=== PATIENT | female | born 1940 | race Caucasian/White ===

== ENCOUNTER → 2017-04-16 | Outpatient (CLI) | payer OTHER, MEDICARE ==
[~2017-04-16] MED LIST: ASPIRIN81 M2 PO; BENAZEPRIL HCL40 MG PO; CALCIUM 600 +1 EAC1 PO; CIPROFLOXACIN500 M3 PO; DULCOLAX STOOL100 MG PO; DUONEB 2.5-0.5 M3 ML INH; FLAGYL500 MG PO; GLUCOPHAGE500 MG PO; INDAPAMIDE1.25 MG PO; IRON325 PO; METOPROLOL SUCC25 M1 PO; PRADAXA150 MG PO; SIMVASTATIN40 MG PO
== END ==
LOC: CAT 09:10
DX: J43.9 Emphysema, unspecified (principal); R06.02 Shortness of breath; R06.00 Dyspnea, unspecified; R91.1 Solitary pulmonary nodule

== ENCOUNTER → 2017-06-07 | Outpatient (CLI) | payer OTHER, MEDICARE | LOC: RAD 00:18 | DX: Z12.31 Encounter for screening mammogram for malignant neoplasm of breast (principal) ==

== ENCOUNTER → 2017-06-21 | Outpatient (CLI) | payer OTHER, MEDICARE ==
--- NOTE | ~2017-06-21 | 2DMMODE ---
[facility] [address] [place] [address] 2 D/M-MODE ECHOCARDIOGRAM Name: WILBERT ANNA Room [facility] [id number] Admission: 06/21/17 Attend Phys: Omkar Lezama, Discharge: Date of : 40 Date of Service: 06/21/17 1505 Report #: [id number] THIS REPORT FOR: //name// APPROVED REPORT Study performed: 06/21/2017 14:09:21 EXAM: Comprehensive 2D, Doppler, and color-flow Echocardiogram Patient Location: Echo lab Status: routine BSA: 1.63 BP: 155/70 mmHg Other Information Study Quality: Good Indications COPD CAD 2D Dimensions RVDd: 30.93 mm LVEF(%): 52.30 (>50%) IVSd: 9.84 (7-11mm) LVOT Diam: 16.98 (18-24mm) LVDd: 49.68 mm PWd: 9.76 (7-11mm) Ascending Ao: 22.83 (22-36mm) LVDs: 36.31 (25-40mm) Aortic Root: 25.32 mm IVC: 18.00 mm Carlson's LVEF: 52.30 % Volumes Left Atrial Volume (Systole) Single Plane 4CH: 35.95 mL Single Plane 2CH: 44.12 mL LA ESV Index: 27.00 mL/m2 Aortic Valve AoV Peak Henry.: 1.49 m/s AO Peak Gr.: 8.93 mmHg LVOT Max P.62 mmHg LVOT Max V: 1.08 m/s MAHAD Vmax: 1.63 cm2 Mitral Valve E/A Ratio: 2.2 MV Decel. Time: 232.73 ms [facility] [address] [address] 2 D/M-MODE ECHOCARDIOGRAM Name: WILBERT ANNA Room #: [facility]#: [id number] Admission: 06/21/17 Attend Phys: Omkar Lezama, Discharge: Date of : 40 Date of Service: 06/21/17 1505 Report #: [id number] MV E Max Henry.: 0.89 m/s MV A Henry.: 0.40 m/s MV PHT: 67.49 ms IVRT: 100.35 ms Pulmonary Valve PV Peak Henry.: 1.15 m/s PV Peak Gr.: 5.32 mmHg Tricuspid Valve TR Peak Henry.: 3.23 m/s RAP Estimate: 5.00 mmHg TR Peak Gr.: 41.80 mmHg Left Ventricle The left ventricle is normal size. Paradoxical septal motion consistent with conduction abnormality. Regional wall motion is grossly normal other segments There is normal left ventricular wall thickness. The left ventricular systolic function is normal. The left ventricular ejection fraction is within the normal range. LVEF is 60%. Left atrial pressure is elevated. Right Ventricle The right ventricle is normal size. Right ventricle is mildly hypokinetic. Atria Left atrium is mildly dilated. Right atrium is mildly dilated. Aortic Valve The aortic valve is normal in structure. No aortic regurgitation is present. There is no aortic valvular stenosis. Mitral Valve The mitral valve is normal in structure. Mild to moderate mitral regurgitation. No evidence of mitral valve stenosis. Tricuspid Valve The tricuspid valve is normal in structure. There is moderate tricuspid regurgitation. The right atrial pressure is estimated at 5 mmHg. PAP is estimated at 47 mmHg. Pulmonic Valve Pulmonic valve is not well visualized. Trace pulmonic regurgitation. Great Vessels [facility] [address] [place] [address] 2 D/M-MODE ECHOCARDIOGRAM Name: WILBERT ANNA [id number] Admission: 06/21/17 Attend Phys: Omkar Lezama, Discharge: Date of : 40 Date of Service: 06/21/17 1505 Report #: [id number] The aortic root is normal in size. IVC is normal in size and collapses >50% with inspiration. Pericardium There is no pericardial effusion. <Conclusion> LVEF is 60%. Paradoxical septal motion consistent with conduction abnormality. Regional wall motion is grossly normal other segments Left atrial pressure is elevated. Left atrium is mildly dilated. There is no aortic valvular stenosis. No aortic regurgitation is present. Mild to moderate mitral regurgitation. There is moderate tricuspid regurgitation. The right atrial pressure is estimated at 5 mmHg. PAP is estimated at 47 mmHg. <ELECTRONICALLY SIGNED> By: Omkar Lezama MD, FACC 06/21/17 1505 1505 1505 Omkar Lezama MD, FACC /INF
== END ==
LOC: CV 13:04
DX: I48.0 Paroxysmal atrial fibrillation (principal)

== ENCOUNTER → 2017-10-25 | Outpatient (CLI) | payer OTHER, MEDICARE | LOC: CAT 08:15 | DX: J43.9 Emphysema, unspecified (principal); N28.1 Cyst of kidney, acquired; N26.1 Atrophy of kidney (terminal); R91.1 Solitary pulmonary nodule ==

== ENCOUNTER → 2018-06-13 | Outpatient (CLI) | payer OTHER, MEDICARE | LOC: RAD 09:41 | DX: Z12.31 Encounter for screening mammogram for malignant neoplasm of breast (principal) ==

== ENCOUNTER → 2018-08-22 | Outpatient (CLI) | payer OTHER, MEDICARE | LOC: ULTRA 10:57 → RAD 10:57 | DX: N26.1 Atrophy of kidney (terminal) (principal); R19.09 Other intra-abdominal and pelvic swelling, mass and lump ==

== ENCOUNTER → 2019-01-27 | Outpatient (CLI) | payer OTHER, MEDICARE | LOC: CAT 10:26 | DX: J43.2 Centrilobular emphysema (principal); R91.1 Solitary pulmonary nodule ==

== ENCOUNTER 2019-02-12 14:32 | Inpatient (IN) | payer OTHER, MEDICARE ==
[~2019-02-12] VITALS: Ht 152.4 cm; Wt 53.1 kg
[2019-02-12 14:33] VITALS: BP 167/69
[2019-02-12 14:49] LABS: ABSOLUTE NEUTROPHILS 9.6 thou/uL (1.4-8.2); BASOPHILS 0.3 % (0.0-2.0); HEMATOCRIT 38.6 % (37.0-47.0); HEMOGLOBIN 13.2 gm/dL (12.0-15.0); LYMPHOCYTES 1.4 % (24.0-44.0); MCH 32.6 pg (26.0-34.0); MCHC 34.1 g/dL (28.0-37.0); MCV 95.6 fL (80.0-100.0); MONOCYTES 6.3 % (1.0-8.0); PLATELET COUNT 240 thou/uL (150-400); RBC 4.04 mil/uL (4.20-5.00); RDW 14.2 % (10.5-14.5); WBC 10.4 thou/uL (4.0-11.0)
[2019-02-12 14:59] LABS: CALCIUM 9.3 mg/dL (8.5-10.1); CREATININE 0.8 mg/dL (0.6-1.0); POTASSIUM 3.6 mmol/L (3.5-5.1)
[2019-02-12 15:02] LABS: APTT 23.8 Seconds (24.5-32.8); INR 1.1; PROTIME 11.1 Seconds (9.3-11.4)
[2019-02-12 15:05] LABS: ALBUMIN 3.8 g/dL (3.4-5.0); TOTAL PROTEIN 7.3 g/dL (6.4-8.2)
[2019-02-12 17:05] VITALS: BP 161/74
[2019-02-12 17:19] VITALS: BP 161/74
[2019-02-12 17:30] VITALS: BP 152/47
[2019-02-12 19:12] VITALS: BP 145/59
[2019-02-12] MEDS ORDERED: FISH OIL 1,0001 EAC1 PO (19:45)
[2019-02-13 03:36] VITALS: BP 141/61
--- NOTE | 2019-02-13 04:34 | NUR ---
Pt. was given morphine earlier during the shift for c/o hip pain (see emar) with no relief. Physician called and notified with new orders for fentanyl (see cpoe). Fentanyl given for pain (see emar) with better pain control noted. Bed alarm is on.
--- NOTE | 2019-02-13 07:32 | EKG ---
[place] [address] [place] [address] ELECTROCARDIOGRAM REPORT Name: WILBERT ANNA Room #: 459-P ADM IN .R.#: [id number] ������������������ Admission: 02/12/19 ������������������ Attend Phys: Ronnie Joyner MD Discharge: ������������������ Date of : 40 Report #: [id number] ����������������������������������������������������������������� [id number] THIS REPORT FOR: //name// [facility] ED Test Date: 2019-02-12 Test Time: 14:43:16 Pat Name: WILBERT ANNA Department: Room: 45 Gender: F Contracting Executive: ANA : 1940 Requested By: Johnie Lima Order Number: [id number] MD: John Dyer Measurements Intervals Lena Rate: 81 P: MI: QRS: -79 QRSD: 152 T: 78 QT: 413 QTc: 480 Interpretive Statements Atrial fibrillation Ventricular premature complex RBBB and LAFB Compared to ECG 11/06/2012 17:01:41 Ventricular premature complex(es) now present Electronically Signed On 02-13-2019 7:32:01 CDT by John Dyer [email or web address] ��������������������������������������������� <ELECTRONICALLY SIGNED> ���������������������������������������� By: John Dyer MD, [facility] ��������������������������������������������� 02/13/19 0732 1443 1443 John Dyer MD, [facility] /EPI
[2019-02-13 08:54] VITALS: BP 149/50
--- NOTE | 2019-02-13 12:48 | HC ---
[facility] [place] [address] [place] [address] CONSULTATION Name: DAMONJUAN JOSEWILBERT B Room #: 459-P ADM IN M.R.#: [id number] Admission: 02/12/19 ������������������ Attend Phys: Ronnie Joyner MD Discharge: ������������������ Date of : 40 Report #: [id number] THIS REPORT FOR: //name// CC: Kris Joyner CHIEF COMPLAINT: Pelvic fracture. HISTORY OF PRESENT ILLNESS: This 78-year-old female states that she lives independently in her own home. She states she has been ambulatory without much difficulty. She does, however, seem slightly confused and I am uncertain about her history, it appears she has fallen today and complains of pelvic and right hip discomfort. At the time of my evaluation, she is somewhat sleepy and lethargic and mildly confused. She states she has only minor discomfort. She demonstrates good movement of both upper extremities, but does complain of some mild shoulder discomfort bilaterally. There is no bruising or swelling at the shoulder. She does have some forearm bruising, but this appears to be superficial. She demonstrates good stability and movement of both wrists and hands. There is no objective evidence of fracture involving the upper extremities. The neck and back reveal in general, normal contour and alignment. She has some generalized stiffness, but there is no obvious or significant deformity in this area and there is no objective evidence of fracture. The pelvis is uncomfortable to palpation and movement in a rather diffuse fashion more toward the right than the left. The right hip seems to be well aligned and is only mildly uncomfortable with gentle rotation. She does have more discomfort with more extensive movement of the right hip, although there is no clear evidence of hip instability or shortening. The right thigh, knee, lower leg, and foot all appear to be normal with the exception of minor degenerative change. The left side of the pelvis reveals better movement of the hip with much less discomfort. She has good movement of the knee and ankle with only minor discomfort. There is no evidence of instability or deformity. Neurologic status in both lower extremities appeared to be normal. 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 There is no evidence of fracture involving the proximal femur on either side. There is mildly displaced fractures of both the superior and inferior pubic rami on the right side. IMPRESSION: Pelvic fracture with right superior and inferior pubic rami fractures with mild displacement. I feel this could be managed nonsurgically. I am sure she will have discomfort and may have difficulty with transfers or ambulation; however, she may start with physical therapy whenever comfort allows and we can begin use of a walker with weightbearing as tolerated and ambulation if comfort will allow. I expect she will not be able to manage independently in her own home and she states she is currently living. [place], [place] [address] CONSULTATION Name: WILBERT ANNA Ivis Room #: 459-P ADM IN M.R.#: [id number] Admission: 02/12/19 ������������������ Attend Phys: Ronnie Joyner MD Discharge: ������������������ Date of : 40 Report #: [id number] will need temporary placement in an extended care facility. She could move ahead with that transfer whenever she is medically stable and whenever she can manage adequately with transfers or limited ambulation. ��������������������������������������������� <ELECTRONICALLY SIGNED> ���������������������������������������� By: Leland Francisco MD ��������������������������������������������� 02/13/19 1248 [id number] Leland Francisco MD /nt
--- NOTE | 2019-02-13 15:07 | NUR ---
PT VS STABLE THROUGHOUT SHIFT. PT WORKED WELL WITH PT AND IS UP TO [facility]. PT ABLE TO USE [facility]. PT TO TRANSFER TO [address] [place] [address].
--- NOTE | 2019-02-13 16:45 | NUR ---
PT ADMITTED RELATED TO R [facility] FX. CM REVIEWED CHART AND SPOKE WITH CARE TEAM. CM MET WITH PT AND FAMILY AT BEDSIDE THIS DAY. PT IS A&O X4. CM ROLE INTRODUCED. PT INDICATED SHE LIVES ALONE IN A HOUSE WITH 2 STEPS TO ENTER AND NO STEPS INSIDE. PT INDICATED SHE HAD BEEN INDEPENDENT WITH GAIT AND ADLS [employer]. PT INDICATED NO DME OR HH HX. PT INDICATED SHE WAS RECEPTIVE TO POST ACUTE CARE STAY. [facility] ASSESSED AND INDICATED THAT THEY ARE ABLE TO ACCEPT PT THIS DAY. PT AND FAMILY ARE AWARE AND AGREEABLE. PT IS TO DC TO [facility] THIS EVENING. REPORT TO BE CALLED TO . NO OTHER CM INTERVENTION INDICATED. CASE CLOSED.
== END 2019-02-13 17:30 | DRG 535 ==
LOC: ER 14:32 → 4W 17:05 → EROBS 17:05 → ER 17:05 → 4W 17:05
PROVIDERS: Emergency Medicine; ADMIT Internal Medicine
DX: S32.511A Fracture of superior rim of right pubis, initial encounter for closed fracture (principal); J96.01 Acute respiratory failure with hypoxia; J98.11 Atelectasis; I25.10 Atherosclerotic heart disease of native coronary artery without angina pectoris; J44.9 Chronic obstructive pulmonary disease, unspecified; R29.6 Repeated falls; Z95.1 Presence of aortocoronary bypass graft; Z90.49 Acquired absence of other specified parts of digestive tract; Z87.891 Personal history of nicotine dependence; I25.2 Old myocardial infarction; Z47.89 Encounter for other orthopedic aftercare; W18.39XA Other fall on same level, initial encounter; Y93.89 Activity, other specified; Y92.89 Other specified places as the place of occurrence of the external cause; Y99.8 Other external cause status; Z23 Encounter for immunization
CPT/HCPCS: 10040

== ENCOUNTER 2019-04-08 08:57 | Inpatient (IN) | payer OTHER, MEDICARE ==
[~2019-04-08] VITALS: Ht 152.4 cm; Wt 55.7 kg
--- NOTE | ~2019-04-08 | HC ---
[facility] [address] [place] [address] CONSULTATION Name: WILFRIDOWILBERT B Room #: 208-P [facility] IN M.R.#: [id number] Admission: 04/08/19 Attend Phys: Katina Bee Discharge: Date of : 40 Report #: [id number] THIS REPORT FOR: //name// CC: Kris Bee ORTHOPEDIC CONSULTATION CHIEF COMPLAINT: Right shoulder pain. HISTORY OF PRESENT ILLNESS: The patient is a pleasant 78-year-old female seen today with her daughter at bedside. She is currently in the CCU. The patient reportedly fell yesterday, had an unwitnessed fall and sustained an injury to her right upper extremity. She reports that she was walking on her patio when she turned and lost her balance. She has had a recent history of a pelvic fracture and has been recommended that she utilize a walker for ambulation. She denies any dizziness, chest pain or precipitating symptoms for a fall. She reports some shoulder pain before her fall, but has otherwise been working reasonably well. She is right hand dominant. Denies any other current symptoms. PAST MEDICAL HISTORY: Significant for CABG in 2001, gallbladder 30 years ago, COPD, CA 25 years ago, cholecystectomy, coronary artery disease, pelvic fracture. She is unsure which orthopedic provider she is seeing for this. CURRENT MEDICATIONS: Please see current MAR. ALLERGIES: No known drug allergies. SOCIAL HISTORY: The patient is a smoker. Denies alcohol or recreational drug use. She reports that she lives at home alone and occasionally ambulates with a walker. PHYSICAL EXAMINATION: GENERAL: The patient is alert and oriented, answering questions appropriately, appears to be in no apparent distress. VITAL SIGNS: Vital signs include temperature 37.1, pulse 72, respirations 18, BP 156/56, pulse ox 97% on room air. EXTREMITIES: Examination of the right and left shoulder girdles reveals moderate swelling and ecchymosis extending from the arm distally into the proximal forearm. She has a bandage on her elbow and has an abrasion over the posterior aspect in the region of her olecranon. Distally, she has mild swelling and ecchymosis in the forearm and hand. She is able to minimally flex and extend the fingers and thumb. Reports intact sensation to light touch. Denies tenderness over the clavicle or the scapular spine. She reports no injuries and has active range of motion and intact sensation on the left upper extremity. [address] [address] CONSULTATION Name: WILBERT ANNA Room #: 208-P [facility] IN ..#: [id number] Admission: 04/08/19 Attend Phys: Katina Bee Discharge: Date of : 40 Report #: [id number] IMAGING: Radiographs of the wrist, humerus, and elbow reveal a comminuted and impacted proximal humerus fracture. A more varus alignment is noted. Glenohumeral joint remains reduced. LABORATORY DATA: Reviewed. IMPRESSION: Comminuted right proximal humerus fracture, status post fall, primarily 2-part. PLAN: We reviewed the patient's injury as well as her imaging studies with both the patient and her family member. We discussed treatment options, both nonoperative and operative. Given the current impacted position and her generalized osteopenia as well as her underlying multiple medical comorbidities, the patient feels more comfortable with nonoperative management and I think this is certainly very reasonable. We discussed if she had more significant displacement or had more functional difficulties, one could consider operative intervention in the future. This would likely entail a reverse total shoulder arthroplasty. I would like to see her back in approximately 7-10 days' time for repeat radiographs. We discussed activity guidelines and precautions. We have reviewed that physical therapy may work with her, with ambulation, and she has been up already in the halls and this will help reduce her risk of DVTs. We reviewed having case management, discussed her post-discharge needs as to whether or not she can go home with help or would be better served at a snf facility. Questions were encouraged, all were answered. The patient felt comfortable proceeding in this manner. By: [id number] Reza Avila MD /albert
[2019-04-08 08:57] VITALS: BP 148/42
[~2019-04-08 08:57] MED LIST changes: +FISH OIL 1,0001 EAC1 PO; +HYDROCODON-ACE1 EAC7 PO; +MIRALAX17 GM PO; +VITAMIN B-12500 MCG PO
[2019-04-08] MEDS ORDERED: METFORMIN HCL500 MG PO (09:10)
[2019-04-08] MEDS ORDERED: INDAPAMIDE2.5 MG PO (09:10)
[2019-04-08] MEDS ORDERED: DOXYCYCLINE 10100 MG PO (09:11)
[2019-04-08] MEDS ORDERED: TRELEGY ELLIPT1 EACH INH (09:11)
[2019-04-08 09:25] LABS: BASOPHILS 0.7 % (0.0-2.0); EOSINOPHILS 0.2 % (0.0-3.0); HEMATOCRIT 34.5 % (37.0-47.0); HEMOGLOBIN 11.6 gm/dL (12.0-15.0); LYMPHOCYTES 4.3 % (24.0-44.0); MCHC 33.7 g/dL (28.0-37.0); MONOCYTES 8.4 % (1.0-8.0); PLATELET COUNT 346 thou/uL (150-400); POLYS 86.4 % (36.0-66.0); RBC 3.63 mil/uL (4.20-5.00); RDW 14.6 % (10.5-14.5); WBC 11.6 thou/uL (4.0-11.0)
[2019-04-08 09:33] LABS: CALCIUM 9.5 mg/dL (8.5-10.1); CREATININE 0.7 mg/dL (0.6-1.0); POTASSIUM 3.7 mmol/L (3.5-5.1)
[2019-04-08 11:49] LABS: URINE BILIRUBIN NEGATIVE (Negative); URINE BLOOD NEGATIVE (Negative); URINE CLARITY CLEAR; URINE COLOR YELLOW; URINE GLUCOSE-RANDOM* NEGATIVE (Negative); URINE KETONES NEGATIVE (Negative); URINE LEUKOCYTES-REFLEX NEGATIVE (Negative); URINE NITRITE-REFLEX NEGATIVE (Negative); URINE PROTEIN (DIPSTICK) NEGATIVE (Negative)
[2019-04-08 12:10] VITALS: BP 143/43
[2019-04-08 12:26] VITALS: BP 155/56
--- NOTE | 2019-04-08 12:27 | NUR ---
REPORT CALLED TO ANA CESPEDES ON 2N
--- NOTE | 2019-04-08 14:19 | NUR ---
TO UNIT FROM Melonie, REPORT FROM COY BYNUM. VSS. DENIES PAIN. RIGHT ARM IN SLING. AFIB PER TELE. IVF ORDERED. ASSIST WITH LUNCH TRAY. WILL CONTINUE TO FOLLOW.
[2019-04-08 20:15] VITALS: BP 149/48
[2019-04-08 23:35] VITALS: BP 147/53
--- NOTE | 2019-04-09 04:22 | NUR ---
ASSESSMENT DOCUMENTED.PT BEEN RESTING IN NO ACUTE DISTRESS.VSS.AFEBRILE.ON RA W/O RESP DISTRESS.FX TO RIGHT HUMURUS,IMMOBIIZED WITH A SLING.PAIN MED GIVEN X1 WITH RELIEF.PT STATES PAIN OCCURS WHENEVER SHE MOVES OTHERWISE SHE IS PAIN FREE W/O MOVEMENT.UP WITH ASSIST TO BSC.,VOIDING ADEQUATELY.AFIB ON MONITOR W/CONTROLLED RATE.PT DENIES ANY OTHER NEEDS AT THIS TIME.WILL CONT TO MONITOR PER POC.
[2019-04-09 04:45] VITALS: BP 147/73
[2019-04-09 06:44] LABS: ALBUMIN 3.1 g/dL (3.4-5.0); CALCIUM 8.5 mg/dL (8.5-10.1); CREATININE 0.6 mg/dL (0.6-1.0); PHOSPHORUS 3.3 mg/dL (2.5-4.9); POTASSIUM 3.9 mmol/L (3.5-5.1)
[2019-04-09 08:23] VITALS: BP 156/56
--- NOTE | 2019-04-09 10:19 | NUR ---
Nutrition: pt admitted with fall, fx right proximal humerus. Consult received, unsure of reason. Eating well on regular diet. Needs some assist with cutting meats due to fx dominant arm. Able to manage eating with left hand otherwise. Stable weights. Voices no needs from RD. Low nutrition risk.
--- NOTE | 2019-04-09 12:11 | NUR ---
AAOX4. CALM. COOPERATIVE. MEDICATED FOR RIGHT SHOULDER PAIN ORDERED. AFIB PER TELE. DR. HILL HERE, DISCONTINUES TELE. WORKING WITH PT AND OT. FREQUENT CHECKS; WILL CONTINUE TO MONITOR.
[2019-04-09 12:17] VITALS: BP 126/73
--- NOTE | 2019-04-09 14:18 | NUR ---
ATTEMPTED TO PHOTOGRAPH, THEN DRESS, WOUND ON RIGHT BUTTOCK PATIENT DESCRIBES A BOIL, BEING TREATED BY HOME HEALTH NURSE BEFORE ADMISSION. TOOK TWO PHOTOS WHICH SUBSEQUENTLY DID NOT APPEAR OR PRINT. WOUND CLEANSED WITH NS AND DRESSED, PAINFUL FOR PATIENT. MEDICATED FOR THE PAIN AND CONSULTED WOUND CARE.
[2019-04-09 19:47] VITALS: BP 153/76
--- NOTE | 2019-04-10 03:00 | NUR ---
ASSESSMENT DOCUMENTED.PT BEEN RESTING IN NO ACUTE DISTRESS.A/OX4.VSS.IMMOBILIZER TO RUE IN PLACE.C/O PAIN TO RIGHT SHOULDER THAT IS CONTROLLED WITH PAIN MEDS.UP WITH ASSIST TO BR.PT DENIES ANY OTHER DISCOMFORT.PT/OT ON BOARD.
[2019-04-10 03:26] VITALS: BP 147/50
--- NOTE | 2019-04-10 09:35 | NUR ---
WOUND CONSULT; I WAS UNABLE TO ASESS THE RIGHT ELBOW. IT WAS TOO PAINFUL FOR THE PATIENT TO ALLOW AN ASSESSMENT; SHE REFUSED. THER IS A WOUND TO THE RIGHT BUTTOCK. THE PATIENT SAYS IT HAS BEEN THERE QUITE A WHILE. THE WOUND HAS SOME NECROSIS. THE WOUND IS 1 X 1 X 0.5 WITH UNDERMINING OF 0.5 FROM 12:00 TO 12:00. IT IS TENDER. RECOMMEDNATIONS; TODAY USE [employer]OMJUDSON TO CHANGE TO ANTONINA. DISCUSSED WITH COY
[2019-04-10 10:04] VITALS: BP 144/67
[2019-04-10 11:11] VITALS: BP 157/64
--- NOTE | 2019-04-10 13:39 | NUR ---
Case opened to follow for dc planning. Pt is known to recent acute and rehab stay over the summer. Pt dc'd from acute rehab with [facility] and family had arranged for 24 hr private duty with them as well. It was recently decreased to a 12 hr shift from 7am to 7pm daily. Pt fell prior to the am shift arriving. Message left for pt's nephew Stew as he has been coordinating her home care. [facility] reports that he contacted them and would like 24hr private duty resumed upon her return home. Rehab recommended. Pt now with humeral fx. Non surgical intervention planned with NWB status RUE and an immobilizer. [facility] has reviewed her case and does not feel she would qualify for another rehab stay so soon. They are recommending SNF or return home with HH and 24hr care. Pt open to rehab but imput from Stew. Awaiting his return call to initiate snf referrals. Listing left with the pt.
--- NOTE | 2019-04-10 15:53 | NUR ---
WOUND CARE FOLLOW UP; THE PATIENT WAS ABLE TO TOLERATE THE ASSESSMENT OF THE RIGHT ARM. THE ARM WAS FRACTURED AND TOO PAINFUL EARLIER. THE WOUND IS A SKIN TEAR RE; A FALL, NO S/S OF INFECTION OR ANY OTHER REMARKABLE FINDING. RECOMMENDATIONS; XEROFORM TO WOUND BED, COVER WITH ABD,SECURE WITH KERLIX, M/W/F PRN RN PRESENT
[2019-04-10 16:04] VITALS: BP 155/49
--- NOTE | 2019-04-10 16:35 | NUR ---
FAXED REFERRAL TO [facility] SPOKE WITH OCTAVIA IN ADM SHE RECEIVED REFERRAL AND WILL REVIEW. FAXED REFERRAL TO [facility] SPOKE WITH RACHANA IN ADM SHE WILL REVIEW REFERRAL AND F/U WITH DCP IN AM.
--- NOTE | 2019-04-10 17:43 | NUR ---
ASSUMED CARE OF PT AT SHIFT CHANGE. ASSESSMENT CHARTED. MEDS GIVEN PER OCT. PT ALERT AND ORIENTED, VSS, IMMOBILIZER IN PLACE, C/O PAIN, DENIES PAIN MEDS WHEN ASSESSED. O2 SATS WNL ON ROOM AIR. DENIES CP, SOB. WOUND NURSE ROUNDED ON PT, CHANGED RIGHT BUTTOCK AND RIGHT ARM DRESSINGS, PICTURES TAKEN, WOUND ORDERS PUT IN. DENIES NEEDS AT THIS TIME. WILL CONT TO MONITOR AND FOLLOW POC.
[2019-04-10 19:52] VITALS: BP 147/65
--- NOTE | 2019-04-11 02:33 | NUR ---
ASSESSMENT DOCUMENTED.PT BEEN RESTING IN NO ACUTE DISTRESS.A/OX4.VSS.RIGHT UPPER ARM IMMOBILIZER IN PLACE.UP WITH ASSIST TO BR.RIGHT ELBOW DRESSING CHNAGED D/T BEING SOAKED.TOLERATED.NO C/O APIN AT THISTIME.PT MAY DISCHARGE TO SNF TODAY.
[2019-04-11 03:11] VITALS: BP 153/62
[2019-04-11] MEDS ORDERED: HYDROCODON-ACE1 EAC7 PO (09:36)
[2019-04-11] MEDS ORDERED: ACETAMINOPHEN325 M1 PO (09:36)
[2019-04-11 09:56] VITALS: BP 147/65
--- NOTE | 2019-04-11 11:51 | NUR ---
PT DISCHARGING TODAY TO [facility] FAXED DC ORDERS/SUMMARY TO FACILITY SPOKE WITH OCTAVIA IN ADM SHE RECEIVED DC ORDERS AND ARRANGED TRANSPORT BY [facility] NO O2. SON IS AT BEDSIDE AND NOTIFIED BY SW, UNIT NOTIFIED AND CHART COPY PER US. RN TO CALL REPORT TO [phone].
[2019-04-11 12:02] VITALS: BP 147/65
--- NOTE | 2019-04-11 12:04 | NUR ---
Pt dcing to snf today. Pt's nephew toured [facility] this am and has selected [facility]. Pt and nephew Stew updated at bedside. [facility] can accept and have arranged a w/c van at 2pm. Both are agreeable. Choice letter signed and placed on the chart. They are considering their [facility] for the future. Chart copy in progress. Dc orders faxed per the dc service planner. Nursing to call report.
[2019-04-11 12:15] VITALS: BP 140/50
--- NOTE | 2019-04-11 15:21 | NUR ---
ASSUMED CARE OF PT AT SHIFT CHANGE. ASSESSMENT CHARTED. MEDS GIVEN PER OCT. VSS. WOUNDS DRESSED PER WOUND CARE ORDERS. PT C/O ELBOW PAIN, MANAGED WITH PO MEDS PER OCT. DISCHARGE ORDERS COMPLETE. IV D/C. TRANSPORTED PER WHEELCHAIR VAN TO FACILITY. REPORT CALLED TO NURSE. PT LEFT WITH ALL BELONGINGS AND DISCHARGE PACKET.
== END 2019-04-11 15:00 | DRG 562 ==
LOC: ER 08:57 → 2N 11:16 → EROBS 11:16 → 2N 12:26
PROVIDERS: Emergency Medicine; ADMIT Hospitalist
PROC: 2W3AX1Z Immobilization of Right Upper Arm using Splint (ICD-10-PCS; principal; 2019-04-08)
DX: S42.211A Unspecified displaced fracture of surgical neck of right humerus, initial encounter for closed fracture (principal); E43 Unspecified severe protein-calorie malnutrition; E87.1 Hypo-osmolality and hyponatremia; J44.9 Chronic obstructive pulmonary disease, unspecified; I25.10 Atherosclerotic heart disease of native coronary artery without angina pectoris; I10 Essential (primary) hypertension; E53.8 Deficiency of other specified B group vitamins; D50.9 Iron deficiency anemia, unspecified; E11.9 Type 2 diabetes mellitus without complications; Z23 Encounter for immunization; Z95.1 Presence of aortocoronary bypass graft; I25.2 Old myocardial infarction; Z90.49 Acquired absence of other specified parts of digestive tract; Z87.891 Personal history of nicotine dependence; Z47.89 Encounter for other orthopedic aftercare; W18.39XA Other fall on same level, initial encounter; Y92.89 Other specified places as the place of occurrence of the external cause; Y93.89 Activity, other specified; Y99.8 Other external cause status
CPT/HCPCS: 10081; 10194

== ENCOUNTER → 2019-08-11 | Outpatient (CLI) | payer OTHER, MEDICARE ==
[~2019-08-11] MED LIST changes: +ACETAMINOPHEN325 M1 PO; +DOXYCYCLINE 10100 MG PO; +INDAPAMIDE2.5 MG PO; +METFORMIN HCL500 MG PO; +TRELEGY ELLIPT1 EACH INH
== END ==
LOC: ULTRA 12:43
DX: N28.1 Cyst of kidney, acquired (principal)

== ENCOUNTER → 2020-03-16 | Outpatient (CLI) | payer OTHER, MEDICARE ==
--- NOTE | 2020-03-16 13:15 | 2DMMODE ---
[facility] [address] [address] 2 D/M-MODE ECHOCARDIOGRAM Name: WILFRIDOWILBERT B Room #: [facility]#: [id number] Admission: 03/16/20 Attend Phys: Raman Boykin MD Discharge: Date of : 40 Report #: [id number] THIS REPORT FOR: cc: Kris Min MD, Eric K. MD Lammoglia, Francisco J. MD ~ APPROVED REPORT Study performed: 03/16/2020 11:06:09 EXAM: Comprehensive 2D, Doppler, and color-flow Echocardiogram Patient Location: Out-Patient Status: routine BSA: 1.37 HR: 69 bpm BP: 144/70 mmHg Rhythm: Irregular Other Information Study Quality: Adequate Indications Mitral valve disease. Hx: CABG 2D Dimensions RVDd: 40.81 mm IVSd: 9.99 (7-11mm) LVOT Diam: 19.64 (18-24mm) LVDd: 46.29 mm PWd: 12.13 (7-11mm) LVDs: 35.15 (25-40mm) Aortic Root: 28.44 mm Volumes Left Atrial Volume (Systole) Single Plane 4CH: 53.82 mL Single Plane 2CH: 63.53 mL Aortic Valve AoV Peak Henry.: 1.38 m/s AO Peak Gr.: 7.60 mmHg LVOT Max P.07 mmHg LVOT Max V: 0.88 m/s MAHAD Vmax: 1.93 cm2 [facility] [address] [address] 2 D/M-MODE ECHOCARDIOGRAM Name: WILBERT ANNA Room #: [facility]#: [id number] Admission: 03/16/20 Attend Phys: Kaylee Claire Discharge: Date of : 40 Report #: [id number] Mitral Valve MV Decel. Time: 200.21 ms MV E Max Henry.: 0.75 m/s Pulmonary Valve PV Peak Henry.: 1.07 m/s PV Peak Gr.: 4.56 mmHg Tricuspid Valve TR Peak Henry.: 2.76 m/s RAP Estimate: 5.00 mmHg TR Peak Gr.: 30.44 mmHg PA Pressure: 35.00 mmHg Left Ventricle The left ventricle is normal size. There is normal left ventricular wall thickness. Left ventricular systolic function is normal. LVEF is 50-55%. This study is not technically sufficient to allow evaluation of the LV diastolic function. Right Ventricle The right ventricle is normal size. The right ventricular systolic function is normal. Atria Left atrium is moderately dilated. Right atrium is moderately dilated. Aortic Valve The aortic valve is normal in structure. No aortic regurgitation is present. There is no aortic valvular stenosis. Mitral Valve The mitral valve is normal in structure. Mild mitral regurgitation. No evidence of mitral valve stenosis. Tricuspid Valve The tricuspid valve is normal in structure. Mild tricuspid regurgitation. Estimated PAP is 35-40mmHg. Pulmonic Valve The pulmonary valve is normal in structure. Trace pulmonic regurgitation. Great Vessels The aortic root is normal in size. Ascending aorta is not well visualized. IVC is normal in size and collapses >50% with inspiration. [facility] [address] [address] 2 D/M-MODE ECHOCARDIOGRAM Name: WILFRIDOWILBERT Ivis [id number] Admission: 03/16/20 Attend Phys: Kaylee Claire Discharge: Date of : 40 Report #: [id number] Pericardium There is no pericardial effusion. <Conclusion> The left ventricle is normal size. LVEF is 50-55%. Left atrium is moderately dilated. Right atrium is moderately dilated. The aortic valve is normal in structure. The mitral valve is normal in structure. Mild mitral regurgitation. The tricuspid valve is normal in structure. Mild tricuspid regurgitation. Estimated PAP is 35-40mmHg. The pulmonary valve is normal in structure. Trace pulmonic regurgitation. There is no pericardial effusion. <ELECTRONICALLY SIGNED> By: Narayan Quevedo MD 03/16/20 1315 1315 1315 Narayan Quevedo MD /INF
== END ==
LOC: CAT 10:12
PROVIDERS: ATTEND Pediatrics
DX: I08.1 Rheumatic disorders of both mitral and tricuspid valves (principal); I25.10 Atherosclerotic heart disease of native coronary artery without angina pectoris; M25.78 Osteophyte, vertebrae; J43.8 Other emphysema; N28.1 Cyst of kidney, acquired; Z90.49 Acquired absence of other specified parts of digestive tract

== ENCOUNTER 2020-03-23 08:23 | Inpatient (IN) | payer OTHER, MEDICARE ==
[~2020-03-23] VITALS: Ht 154.9 cm; Wt 49.9 kg
--- NOTE | ~2020-03-23 | HC ---
[facility] [place] [address] CONSULTATION Name: WILBERT ANNA Room #: 434-P ADM IN M.R.#: [id number] Admission: 03/23/20 Attend Phys: Juan Jose Arce, Discharge: Date of : 40 Report #: [id number] THIS REPORT FOR: cc: Kris Min MD,Leland Long MD, MD ~ CC: Kris Mariscal DATE OF SERVICE: 03/23/2020 HISTORY OF PRESENT ILLNESS: The patient is a 79-year-old white female with a history of 3 falls over the past 3 days. She is noted to have a left nondisplaced fibular fracture. She has pain involving that left ankle. Pelvic x-rays were taken, which showed no acute abnormalities with chronic fracture deformities. She also has degenerative changes of both hips. The patient was evaluated by Cardiology, who notes that she has permanent atrial fibrillation and is not on any anticoagulation with frequent falls. She has not desired a Watchman procedure. Orthopedics has been consulted as well. We are seeing her in rehabilitation medicine consultation. PAST MEDICAL HISTORY: Includes COPD, history of prior frequent falls, moderate to severe memory issues. She has had a prior [address] [place] [address] Acute Rehab stay last February. She was seen with frequent falls at that time. She also was noted to have a pelvic fracture at that time. She also has a history of hypertension. MEDICATIONS: Please see the full medication listing. ALLERGIES: No known drug allergies. SOCIAL HISTORY: Lives alone, house caregivers during the day. Ramp. Plan is to move to [place] to be in an assisted living facility near the nephew. REVIEW OF SYSTEMS: No current complaints of chest pain, shortness of breath or abdominal discomfort. PHYSICAL EXAMINATION: GENERAL: This is a 79-year-old thin white female in no obvious distress. VITAL SIGNS: Last recorded temperature 98.8, pulse 88, respirations 18, blood pressure 151/93. She is alert. She is a limited historian. HEENT: Facies are symmetric. EXTREMITIES: Functional range of motion of both upper extremities. Strength is grade 4-/5. DTRs are trace to 1. No obvious discomfort to pelvic compression. Functional range of motion of the right lower extremity without focal weakness. [facility] [address] [place] [address] CONSULTATION Name: SANDYCAMRONWILBERT Room #: 434-P [facility] IN M.R.#: [id number] Admission: 03/23/20 Attend Phys: Juan Jose Arce, Discharge: Date of : 40 Report #: [id number] She does have swelling over her left lateral ankle over the lateral malleolus. There is no focal calf swelling. She can wiggle her toes. ASSESSMENT: This is a 79-year-old white female with the following problem list: 1. Left nondisplaced distal fibular fracture. 2. Gait instability with frequent falls. 3. Permanent atrial fibrillation, not on anticoagulation due to fall risk. 4. Chronic obstructive pulmonary disease. 5. Prior history of coronary artery bypass grafting. 6. Diabetes mellitus. PLAN: I do not see that the patient meets criteria for another acute [address] [place] [address] inpatient rehabilitation stay. Would agree with a fpc facility stay to let her ankle fracture gradually heal and then the nephew can be involved with the plans for assisted living in [place]. Note that case management is already involved with this and has e-mailed the SNF list to the nephew. Thank you for asking us to assist in this patient's care. By: [id number] Leland Aburto MD /[facility]
[2020-03-23 08:23] VITALS: BP 144/74
[2020-03-23 09:12] LABS: ABSOLUTE NEUTROPHILS 6.7 thou/uL (1.4-8.2); BASOPHILS 0.3 % (0.0-2.0); EOSINOPHILS 0.7 % (0.0-3.0); HEMATOCRIT 41.6 % (37.0-47.0); HEMOGLOBIN 13.8 gm/dL (12.0-15.0); LYMPHOCYTES 6.9 % (24.0-44.0); MCH 32.5 pg (26.0-34.0); MCHC 33.1 g/dL (28.0-37.0); MCV 98.2 fL (80.0-100.0); PLATELET COUNT 262 thou/uL (150-400); POLYS 82.1 % (36.0-66.0); RBC 4.23 mil/uL (4.20-5.00); RDW 15.6 % (10.5-14.5); WBC 8.2 thou/uL (4.0-11.0)
[2020-03-23 09:31] LABS: CALCIUM 10.4 mg/dL (8.5-10.1); CREATININE 0.8 mg/dL (0.6-1.0); POTASSIUM 4.4 mmol/L (3.5-5.1)
[2020-03-23 09:37] LABS: ALBUMIN 3.4 g/dL (3.4-5.0); TOTAL BILIRUBIN 1.2 mg/dL (0.2-1.0); TOTAL PROTEIN 7.6 g/dL (6.4-8.2)
[2020-03-23 09:46] LABS: URINE BILIRUBIN NEGATIVE (Negative); URINE BLOOD NEGATIVE (Negative); URINE CLARITY CLEAR; URINE COLOR YELLOW; URINE GLUCOSE-RANDOM* NEGATIVE (Negative); URINE KETONES TRACE (Negative); URINE LEUKOCYTES-REFLEX NEGATIVE (Negative); URINE NITRITE-REFLEX NEGATIVE (Negative); URINE PROTEIN (DIPSTICK) 2+ (Negative); URINE SPECIFIC GRAVITY 1.025 (1.005-1.035)
[2020-03-23] MEDS ORDERED: ASA81BEC PO (10:15)
[2020-03-23] MEDS ORDERED: PROAIR RESPICL90 MCG (11:28)
[2020-03-23] MEDS ORDERED: FUROSEMIDE 40 M40 M1 PO (11:29)
[2020-03-23] MEDS ORDERED: KLOR-CON 1010 MEQ PO (11:29)
[2020-03-23] MEDS ORDERED: COZAAR 50 MG TA50 M1 PO (11:29)
[2020-03-23] MEDS ORDERED: SIMVASTATIN40 MG PO (11:30)
[2020-03-23] MEDS ORDERED: MELATONIN10 M3 PO (11:30)
[2020-03-23] MEDS ORDERED: CALCIUM 500 +1 EACH PO (11:31)
[2020-03-23 13:34] VITALS: BP 128/77
[2020-03-23 14:26] LABS: BACTERIA-REFLEX 1-9 Few /HPF (None Seen); CASTS None Seen /LPF (None Seen); CRYSTALS None Seen /LPF (None Seen); SQUAMOUS 0-3 Few /LPF (0-3); URINE RBC None Seen /HPF (0-2); URINE WBC-REFLEX 0-5 Rare /HPF (0-5)
[2020-03-23 14:50] VITALS: BP 145/64
[2020-03-23 15:55] VITALS: BP 141/83
--- NOTE | 2020-03-23 15:55 | EKG ---
[facility] Enio Kathleen [place] [address] ELECTROCARDIOGRAM REPORT Name: WILBERT ANNA Room #: 434-P ADM IN M.R.#: [id number] Admission: 03/23/20 Attend Phys: Juan Jose Arce, Discharge: Date of : 40 Report #: [id number] THIS REPORT FOR: cc: Kris Min MD, Eric K. MD Couchonnal, Luis F. MD ~ THIS REPORT FOR: //name// [facility] ED Test Date: 2020-03-23 Test Time: 08:55:11 Pat Name: WILBERT ANNA Department: Room: Gender: F Top Case Assembler: DAVID : [id number] Requested By: Raphael Boyle Order Number: [id number] MD: Ajay Ibarra Measurements Intervals [place] Rate: 86 P: [place]: QRS: -84 QRSD: 147 T: 128 QT: 403 QTc: 482 Interpretive Statements Atrial fibrillation Baseline wander in lead(s) II,III,aVF Compared to ECG 02/12/2019 14:43:16 Electronically Signed On 03-23-2020 15:55:27 CDT by Ajay Ibarra [email or web address] <ELECTRONICALLY SIGNED> By: Ajay Ibarra MD 03/23/20 1555 [id number] Ajay Ibarra MD /EPI
[2020-03-23 16:01] LABS: MAGNESIUM 1.4 mg/dL (1.8-2.4); TROPONIN-I 0.19 ng/mL (<0.06)
--- NOTE | 2020-03-23 16:40 | NUR ---
PATIENT ADMITTED FROM ER WITH PELVIC FRACTURE AND LEFT ANKLE FRACTURE. PATIENT FELL AT HOME. PATIENT DENIES PAIN UNLESS SHE IS MOVED. RED, SWOLLEN LEFT ANKLE. PATIENT HAS A SKIN TEAR TO RIGHT UPPER ARM. PATIENT HAS SCATTERED SMALL BRUISES OVER ARMS AND HANDS. PATIENT HAS RIGHT AC IV 20G IN PLACE. CONSULT CALLED PER STEF/US. ALERT AND ORIENTED X 4. PATIENT GIVEN LUNCH BOX FOR LUNCH, HEART HEALTHY DIET FOR DINNER, HX OF AFIB. REPORT GIVEN TO ADARSH/RN. ADMISSION COMPLETED.
[2020-03-23] MEDS ORDERED: INDAPAMIDE2.5 MG PO (17:00)
[2020-03-23 17:28] VITALS: BP 100/64
[2020-03-24 04:06] LABS: GLYCOHEMOGLOBIN (HGB A1C) 5.3 % (4.8-5.6)
[2020-03-24 04:37] VITALS: BP 96/62
--- NOTE | 2020-03-24 04:40 | NUR ---
ASSUMED PT CARE AT 1945. PT IS ALERT AND ORIENTED. PT REFUSES TO TAKE MEDICATION. PT REFUSED BLOOD SUGAR CHECK. I PLACED A BOBBY CATHETER. I STARTED FLUIDES AT 0038. PT IS RESTING IN ROOM. WILL CONTINUE TO MONITER.
[2020-03-24 06:34] LABS: ABSOLUTE NEUTROPHILS 4.7 thou/uL (1.4-8.2); BASOPHILS 0.5 % (0.0-2.0); EOSINOPHILS 1.6 % (0.0-3.0); HEMATOCRIT 36.1 % (37.0-47.0); HEMOGLOBIN 12.1 gm/dL (12.0-15.0); LYMPHOCYTES 11.1 % (24.0-44.0); MCH 32.6 pg (26.0-34.0); MCHC 33.6 g/dL (28.0-37.0); MCV 97.2 fL (80.0-100.0); MONOCYTES 11.4 % (1.0-8.0); PLATELET COUNT 240 thou/uL (150-400); POLYS 75.4 % (36.0-66.0); RBC 3.71 mil/uL (4.20-5.00); RDW 15.4 % (10.5-14.5); WBC 6.3 thou/uL (4.0-11.0)
[2020-03-24 06:57] LABS: CALCIUM 8.6 mg/dL (8.5-10.1); CREATININE 0.6 mg/dL (0.6-1.0); MAGNESIUM 1.3 mg/dL (1.8-2.4); POTASSIUM 3.6 mmol/L (3.5-5.1)
[2020-03-24 07:20] VITALS: BP 151/93
--- NOTE | 2020-03-24 09:29 | NUR ---
ASSESSMENT: CM REVIEWED CHART AND SPOKE WITH PATIENT WELL WITH HER NEPHEW/ALLALEON SHARPE. PT WAS ADMITTED AFTER A FALL WITH PELVIC AND L ANKLE FRACTURE. PT REPORTS SHE LIVES IN A HOUSE ALONE. KIM SHARPE BUILT HER A RAMP TO ENTER SO SHE HAS NO STEPS TO ENTER OR ONCE INSIDE. PT REPORTS THAT SHE AMBULATES USING A WALKER MOST RECENTLY. PT HAS GRAB BARS/SHOWER CHAIR AND HAS PRIVATE DUTY ARRANGED THROUGH [facility] THAT COMES 5 DAYS A WEEK FOR 12 HOURS A DAY. PT HAS USED [facility] IN THE PAST WELL BUT DOES NOT HAVE HH CURRENTLY. PT HAS ALSO BEEN TO [facility]N IN THE PAST. PTS KIM SHARPE STATES DEPENDING ON WHAT HAPPENS OR IF PATIENTS GETS SURGERY AND NEEDS REHAB HIS PLANS WERE TO MOVE PATIENT TO [place] WHERE HE LIVES AND GET HER IN TO AN ASSISTED LIVING. HE REPORTS HE HAS ALREADY BEEN LOOKING AT PLACES AND RESEARCHING PRICES. CM WILL AWAIT FURTHER INPUT FROM ORTHO WELL PT/OT. CM WILL CONTINUE TO FOLLOW TO ASSIST NEEDED.
--- NOTE | 2020-03-24 10:44 | NUR ---
PT CARE ASSUMED AT 0700. A&Ox4. PT LAYING FLAT IN BED WITH NO PAIN. WHEN MOBILIZING PT HAS PAIN. NO MEDICATION NEEDED AT THIS TIME. AWAITING ORTHO CONSULT. PT/OT EVAL PENDING FOR POSSIBLE REHAB VS.SNF PLACEMENT. BOBBY IN PLACE FOR IMMOBILIZATION. ACHS WITH NO COVERAGE NEEDED. IV PATENT WITH NO REDNESS OR EDEMA, FLUIDS INFUSING. PT NEEDS COVID TEST FOR PLACEMENT. NEPHEW IN THE ROOM MOST OF THE DAY. MAGNESIUM LOW AT 1.3. MD AWARE. FALL PROTOCOL IN PLACE. PT TAKES MEDS WHOLE WITH WATER. R. UPPERARM SKIN TEAR COVERED. WILL CONTINUE TO MONITOR.
[2020-03-24 16:13] VITALS: BP 138/78
[2020-03-24 20:06] VITALS: BP 119/61
[2020-03-25 04:35] VITALS: BP 135/59
--- NOTE | 2020-03-25 05:07 | NUR ---
RECEIVED CARE OF THIS PATIENT AT 1900. PATIENT ALERT AND ORIENTED X4. IV OUT IN RAC AND PLACED IN LFA. ACCUCHECK WAS 253, RECEIVED 6 UNITS LISPRO INSULIN. BOBBY PATENT YELLOW URINE. IV HAS FLUIDS INFUSING. DENIES PAIN. SLEPT MOST OF NIGHT.
[2020-03-25 07:45] VITALS: BP 149/68
--- NOTE | 2020-03-25 09:37 | NUR ---
Assumed care of pt at 0700. Pt pleasant and denies pain. Orthopedic consult was called again because no note found from ortho group. Possible skilled placement. Fall precautions in place. Will continue to monitor.
--- NOTE | 2020-03-25 09:43 | NUR ---
ON-GOING ASSESSMENT: CM REVIEWED CHART AND SPOKE WITH ATTENDING AND BEDSIDE RN. STILL AWAITING ON OTHRO CONSULT AT THIS TIME AND RECS. PT/OT STILL PENDING AT THIS TIME. CM REACHED OUT TO PATIENTS AMANDA ANNEMARIE AND HE STATES HE WOULD LIKE REFERRAL SENT TO [facility] WHERE SHE HAS BEEN IN THE PAST. CM FAXED REFERRAL. JACKELINE ALSO NOTIFIED DR. FLORENCE THAT A COVID TEST WOULD LIKELY NEED TO BE COMPLETED PRIOR TO DISCHARGING TO A SNF. CM WILL CONTINUE TO FOLLOW.
--- NOTE | 2020-03-25 15:52 | NUR ---
ON-GOING ASSESSMENT: CM REVIEWED CHART AND SPOKE WITH ATTENDING. PT IS STBALE TO DISCHARE TO SNF TODAY. CM SPOKE WITH PT AND NEPHEW ANNEMARIE WHO WANTED PATIENT TO GO TO [facility] WHERE SHE HAS BEEN IN THE PAST, REFERRAL SENT AND THEY CAN ACCEPT HER TODAY. CM SPOKE WITH [facility] IN ADMISSIONS WHO REPORTS THEY CAN STILL WAIVE THE 3 MIDNIGHT MEDICARE RULE AND CAN ACCEPT PATIENT TODAY. CHART COPY WAS ORDERED AND CLOSING SPECIALIST NOTIFIED. BEDSIDE RN HAS THE NUMBER FOR REPORT. TRANSPORTATION WAS ARRANGED FOR 5 OM. CM NOTIFIED BEDSIDE RN AND ANNEMARIE. D/C ORDERS AND SUMMARY WERE FAXED TO FACILITY. [facility] IN ADMISSIONS STATES THEY DO NOT NEED A NEGATIVE COVID TEST PRIOR TO HER COMING LONG PATIENT IS NOT HAVING ANY SYMPTOMS. NO FURTHER QUESTIONS AT THIS TIME.
[2020-03-25 16:54] VITALS: BP 146/67
== END 2020-03-25 18:04 | DRG 563 ==
LOC: ER 08:23 → 4S 14:50 → ER 14:50 → 4S 14:59
PROVIDERS: Emergency Medicine; Nurse Practitioner; ADMIT Surgery; ATTEND Surgery
DX: S82.432A Displaced oblique fracture of shaft of left fibula, initial encounter for closed fracture (principal); S32.591A Other specified fracture of right pubis, initial encounter for closed fracture; I48.21 Permanent atrial fibrillation; R65.10 Systemic inflammatory response syndrome (SIRS) of non-infectious origin without acute organ dysfunction; J44.9 Chronic obstructive pulmonary disease, unspecified; I25.10 Atherosclerotic heart disease of native coronary artery without angina pectoris; E83.42 Hypomagnesemia; Z60.2 Problems related to living alone; E86.0 Dehydration; E11.65 Type 2 diabetes mellitus with hyperglycemia; M62.84 Sarcopenia; D50.9 Iron deficiency anemia, unspecified; G47.00 Insomnia, unspecified; R29.6 Repeated falls; Z79.82 Long term (current) use of aspirin; Z95.1 Presence of aortocoronary bypass graft; I25.2 Old myocardial infarction; Z90.49 Acquired absence of other specified parts of digestive tract; Z87.891 Personal history of nicotine dependence; Z47.89 Encounter for other orthopedic aftercare; Z79.899 Other long term (current) drug therapy; W18.39XA Other fall on same level, initial encounter; Y93.89 Activity, other specified; Y92.89 Other specified places as the place of occurrence of the external cause; Y99.8 Other external cause status
CPT/HCPCS: 10195

== ENCOUNTER → 2020-12-06 | Outpatient (CLI) | payer OTHER, MEDICARE ==
[~2020-12-06] MED LIST changes: +ASA81BEC PO; +CALCIUM 500 +1 EACH PO; +COZAAR 50 MG TA50 M1 PO; +FUROSEMIDE 40 M40 M1 PO; +KLOR-CON 1010 MEQ PO; +MELATONIN10 M3 PO; +PROAIR RESPICL90 MCG
== END ==
LOC: SJCVC 13:11
PROVIDERS: ATTEND Internal Medicine
DX: R94.31 Abnormal electrocardiogram [ECG] [EKG] (principal); I45.10 Unspecified right bundle-branch block; I25.10 Atherosclerotic heart disease of native coronary artery without angina pectoris; E78.5 Hyperlipidemia, unspecified; E11.9 Type 2 diabetes mellitus without complications; I48.21 Permanent atrial fibrillation; I10 Essential (primary) hypertension; Z95.1 Presence of aortocoronary bypass graft; D64.9 Anemia, unspecified; R00.1 Bradycardia, unspecified; J44.9 Chronic obstructive pulmonary disease, unspecified; M10.9 Gout, unspecified; Z79.899 Other long term (current) drug therapy; Z87.891 Personal history of nicotine dependence

== ENCOUNTER → 2021-06-24 | Outpatient (CLI) | payer OTHER, MEDICARE | LOC: SJCVCIMAG 08:30 | PROVIDERS: ATTEND Internal Medicine | DX: R94.31 Abnormal electrocardiogram [ECG] [EKG] (principal); I45.10 Unspecified right bundle-branch block; I08.3 Combined rheumatic disorders of mitral, aortic and tricuspid valves; I25.10 Atherosclerotic heart disease of native coronary artery without angina pectoris; I48.21 Permanent atrial fibrillation; E78.5 Hyperlipidemia, unspecified; I10 Essential (primary) hypertension; E11.9 Type 2 diabetes mellitus without complications; J44.9 Chronic obstructive pulmonary disease, unspecified; Z95.1 Presence of aortocoronary bypass graft; Z88.8 Allergy status to other drugs, medicaments and biological substances; Z79.82 Long term (current) use of aspirin; Z79.84 Long term (current) use of oral hypoglycemic drugs; Z79.899 Other long term (current) drug therapy; Z87.891 Personal history of nicotine dependence ==